=== PATIENT | male | born 1950 | race Caucasian/White ===

== ENCOUNTER → 2018-06-07 | Outpatient (CLI) | payer OTHER ==
--- NOTE | 2018-06-07 15:36 | CT ---
Clinical history: 68-year-old 185 pound male smoker with known prostate cancer and cardiac disease (atrial fibrillation) reported on previous chest CT (15 September 2017) to have "peribronchial cuffing with patchy bibasilar atelectasis/fibrosis" and subsequently noted to have "lung nodules"(November 2017). Scan technique: Volume acquisition of data unenhanced low-dose high-resolution CT scan of the chest (bony thorax, lungs and mediastinum) obtained with patient lying supine on the Siemens [address] scanner [place], [place]. All data archived in the PACS system for storage, reformatting axial/sagittal/coronal planes and study (lung/mediastinal windows). Interpretation: 1. Small focus of atelectasis, anteriorly, left lung base; and, larger platelike atelectasis or postinflammatory fibrosis located peripherally, postero-laterally, right lower lobe....unchanged when compared directly to [address] exam chest. 2. No discrete new suspicious parenchymal lung nodule or mass lesion. Tiny lung cysts. Peribronchial "cuffing". 3. Small subcarinal lymph nodes (no new hilar or mediastinal lymph nodes evident on today's exam). 4. No malignant or other pleural effusions. No alveolar edema. 5. Normal cardiac silhouette i.e. size and configuration. No pericardial effusion. (Coronary artery calcifications). 6. Atheromatous calcifications outlining normal caliber thoracic aorta. No aneurysm or dissection. 7. Multilevel disc disease and hypertrophic arthritic changes of the spine. No sign of osteolytic/osteoblastic metastatic disease. CONCLUSION: Usual signs of senescence. Bibasilar atelectasis/fibrosis. No new lung nodule, mass or malignancy.
== END ==
LOC: DL.CT 13:06
PROVIDERS: ATTEND Nurse Practitioner
DX: R91.8 Other nonspecific abnormal finding of lung field (principal)
CPT/HCPCS: 71250

== ENCOUNTER 2018-08-02 10:09 | Day surgery (SDC) | payer OTHER, MEDICARE ==
[~2018-08-02 10:09] MED LIST: Lactated Ringers 1,000 ML IV SCH; Lidocaine 1% 30 ML SDV INJECT ONE; Sodium Chloride 0.9% 10 ML Syringe FLUSH PRN; ceFAZolin 2 GM in Premix Bag 1 BAG IV ONE
[2018-08-02] MEDS ORDERED: fentaNYL 250 MCG/5 ML SDV IV ONE (10:10)
[2018-08-02] MEDS ORDERED: Lidocaine 2% 20 ML MDV ONE (10:10)
[2018-08-02] MEDS ORDERED: Dexamethasone 4 MG/ML SDV IV ONE (10:10)
[2018-08-02] MEDS ORDERED: Ketorolac 30 MG/ML SDV IVPUSH ONE (10:10)
[2018-08-02] MEDS ORDERED: Propofol 200 MG/20 ML SDV IV ONE (10:10)
[2018-08-02] MEDS ORDERED: Ondansetron 4 MG/2 ML SDV IV ONE (10:10)
[2018-08-02] MEDS ORDERED: Midazolam 1 MG/ML 2 ML SDV IV ONE (10:10)
[2018-08-02] MEDS ORDERED: Bupivacaine 0.5% 30 ML SDV ONE (10:40)
[2018-08-02] MEDS ORDERED: Lidocaine 1% 30 ML SDV ONE (10:41)
[2018-08-02 10:54] LABS: ANION GAP 16.9; CHLORIDE,CL 102 mmol/L (101-111); SODIUM,NA 137 mmol/L (135-145)
[2018-08-02] MEDS ORDERED: Lidocaine 1% 30 ML SDV INJECT ONE ×2 (12:08)
[2018-08-02] MEDS ORDERED: Bupivacaine 0.5% 30 ML SDV INJECT ONE ×2 (12:08)
[2018-08-02] MEDS ORDERED: Sodium Chloride 0.9% 10 ML Syringe FLUSH PRN (14:34)
[2018-08-02] MEDS ORDERED: Acetaminophen/oxyCODONE 325-5 MG Tab PO PRN (14:34)
--- NOTE | 2018-08-02 14:40 | PCM.OPNOTE ---
- General Post-Op/Procedure Note Date of Surgery/Procedure: 08/02/18 Operative Procedure(s): RIght ankle ORIF medial malleolus fracture Pre Op Diagnosis: Right ankle medial malleolus displaced fracture Post-Op Diagnosis: cristobal Anesthesia Technique: General LMA Primary Surgeon: Bebe Escoto Anesthesia Provider: Efe Connelly EBL in mLs: 10 Complications: none Condition: Good Free Text/Narrative:: Pt tolerated procedure well and was transported to recovery with vascular status intact to right LE . Liberty 3.5 fully threaded screws placed in AO technique for compression. Well padded L&U splint applied with ankle in neutral.
[2018-08-02 16:02] VITALS: BP 127/88; PULSE 85
--- NOTE | 2018-08-03 20:24 | OR ---
DATE: 08/02/2018 PREOPERATIVE DIAGNOSIS: Right ankle medial malleolar fracture, displaced. POSTOPERATIVE DIAGNOSIS: Right ankle medial malleolar fracture, displaced. PROCEDURE PERFORMED: Right ankle medial malleolus open reduction and internal fixation. ANESTHESIA: General with preoperative block of 10 mL of 1:1 mixture of 1% lidocaine plain and 0.5% Marcaine plain. TOURNIQUET TIME: 86 minutes, pneumatic thigh tourniquet. ESTIMATED BLOOD LOSS: Minimal. SPECIMENS: None. COMPLICATIONS: None. INDICATIONS: Raoul is a 68-year-old male who presents for right ankle injury. He states that on 07/30/2018, he was bucked off his horse, not sure how he landed, but did have immediate pain in that ankle. He was able to stand up on it after the injury, however, it continued to be very swollen and painful for him. He did present to the clinic the next day for an x-ray. He was placed in a compression dressing for the swelling. X-rays of the right ankle reveals displaced medial malleolar fracture, which is displaced approximately 6 mm anteromedial. The lateral malleolus appears intact without any fracture. The ankle mortise is intact. The patient voiced good understanding of proposed procedure and possible complications, and elects to have surgery at this time. DESCRIPTION OF THE PROCEDURE: The patient was taken to the operating room, lying in the supine position. After adequate anesthesia induction as described above, the right foot and ankle were prepped and draped in a usual sterile fashion. A pneumatic thigh tourniquet was inflated to 250 mmHg. Attention was then directed to the right ankle overlying the medial malleolus where an approximately 7 cm curvilinear incision was made overlying the ankle fracture. Sharp and blunt dissections were performed down to the level of the medial malleolar ankle fracture. Care was taken to retract all neurovascular structures. The ankle fracture was identified and it was cleaned with a curette. It was also irrigated and inspected, and the ankle joint was also inspected at the medial aspect through this incision and it looked to be intact without any cartilaginous defects. The ankle fracture was reduced with the fracture reduction clamp. Fluoroscopy was used to verify proper reduction of the ankle fracture. It was also visualized and I was able to visualize into the ankle joint. It appeared to be well approximated. Leia 3.5 fully-threaded screws x2 were placed through the distal aspect of the medial malleolus across the fracture site in a lag fashion using AO technique. The fracture was noted to be stable after the reduction clamps were removed and it was stable in all forces applied and with range of motion of the ankle. Fluoroscopy was then again used to verify proper position of the screws, and I also stressed the ankle at this time and there was no widening of the syndesmosis. This was stable with stress under fluoroscopy. The area was then irrigated with copious amounts of sterile saline. Deep closure was completed with 3-0 Vicryl and skin closure was completed with 4-0 nylon. The area was dressed with Xeroform to the incision site, fluffs, Webril, and a well-padded L and U splint with the ankle in neutral position. The patient tolerated anesthesia and the procedure well, and was transferred to the recovery room with vital signs stable and vascular status intact as noted by immediate hyperemia to all digits upon deflation of the thigh tourniquet. He will need to be non weight bearing with crutches and splint post-op. I will place order for forearm crutches as he is not able to tolerate the underarm crutches. He was then discharged home once he met hospital discharge requirements. [facility] /[id number] MTDD
== END 2018-08-02 15:45 | disposition home or self-care (01) ==
LOC: DL.SDS 10:09
PROVIDERS: ATTEND Podiatrist
DX: S82.51XA Displaced fracture of medial malleolus of right tibia, initial encounter for closed fracture (principal); I48.91 Unspecified atrial fibrillation; J44.9 Chronic obstructive pulmonary disease, unspecified; F17.210 Nicotine dependence, cigarettes, uncomplicated; Z79.1 Long term (current) use of non-steroidal anti-inflammatories (NSAID); Z79.899 Other long term (current) drug therapy; Z79.82 Long term (current) use of aspirin; Z86.79 Personal history of other diseases of the circulatory system; V80.010A Animal-rider injured by fall from or being thrown from horse in noncollision accident, initial encounter
CPT/HCPCS: 27766; 36415; 80053; 85025; A4217; C1713; J0690; J1100; J1885; J2001; J2250; J2405; J2704; J3010; J3490; J7120

== ENCOUNTER 2024-10-11 11:02 | Emergency (ER) | payer OTHER ==
[2024-10-11] MEDS ORDERED: Sodium Chloride 0.9% 10 ML Syringe FLUSH PRN (11:15)
[2024-10-11 11:21] LABS: BASOPHILS PERCENT AUTO 0.1 % (0.0-1.0); EOSINOPHILS PERCENT AUTO 0.4 % (1.0-3.0); LYMPHOCYTES PERCENT AUTO 4.3 % (20.5-50.1); MONOCYTES PERCENT AUTO 4.6 % (2-8); NEUTROPHILS PERCENT AUTO 90.6 % (42.2-75.2); PLATELET COUNT,PLT 217 10^3/uL (150-450); RED BLOOD CELL COUNT 4.80 10^6/uL (4.6-6.2); WHITE BLOOD CELL COUNT,WBC 14.1 10^3/uL (5.0-10.0)
[2024-10-11] MEDS: Iopamidol 612 MG/ML 100 ML Bottle IVPUSH ONE (11:22)
[2024-10-11 11:35] LABS: INR 1.1 (0.9-1.2)
[2024-10-11 11:38] LABS: A/G RATIO 1.3; ALANINE AMINOTRANSFERASE,ALT 24 U/L (16-63); ASPARTATE AMNIOTRANSFERASE,AST 21 U/L (15-37); BILIRUBIN TOTAL 1.0 mg/dL (0.2-1.0); BLOOD UREA NITROGEN,BUN 16 mg/dL (7-18); CARBON DIOXIDE,CO2 24 mmol/L (21-32); CHLORIDE,CL 104 mmol/L (98-107); CREATININE 1.27 mg/dL (0.70-1.30); ESTIMATED GFR 59 mL/min (>=60); GLUCOSE RANDOM 127 mg/dL (70-99); POTASSIUM,K 4.3 mmol/L (3.5-5.1); PROTEIN TOTAL,TP 7.0 g/dL (6.4-8.2); SODIUM,NA 141 mmol/L (136-145)
[2024-10-11] MEDS: Lactated Ringers 1,000 ML IV SCH (12:14)
[2024-10-11] MEDS: Acetaminophen/HYDROcodone 325-5 MG Tab PO ONE (13:37)
[2024-10-11] MEDS: Ketorolac 30 MG/ML SDV IVPUSH ONE (16:43)
[2024-10-11 17:25] VITALS: BP 128/90; PULSE 96
== END 2024-10-11 19:32 ==
LOC: DL.ED 11:02
DX: S22.42XA Multiple fractures of ribs, left side, initial encounter for closed fracture (principal); S42.035A Nondisplaced fracture of lateral end of left clavicle, initial encounter for closed fracture; M19.90 Unspecified osteoarthritis, unspecified site; Z79.82 Long term (current) use of aspirin; Z79.899 Other long term (current) drug therapy; V80.010A Animal-rider injured by fall from or being thrown from horse in noncollision accident, initial encounter
CPT/HCPCS: 36415; 70450; 71260; 72125; 74177; 80053; 83605; 83735; 85025; 85610; 96361; 96374; 96375; 99284; 99285; A9270; J1885; J2270; J7120; Q9967